=== PATIENT | female | born 1995 | race Two or more races ===

== ENCOUNTER → 2017-07-05 | Emergency (ER) | payer OTHER ==
[~2017-07-05] VITALS: Ht 165.1 cm; Wt 52.2 kg
[~2017-07-05] MED LIST: PROTONIX40 M1
== END | disposition home or self-care (01) ==
LOC: ER 18:22
DX: J11.1 Influenza due to unidentified influenza virus with other respiratory manifestations (principal)

== ENCOUNTER 2017-10-04 13:11 | Emergency (ER) | payer OTHER ==
[~2017-10-04] VITALS: Ht 165.1 cm; Wt 54.4 kg
[2017-10-04] MEDS ORDERED: ZITHROMAX200 MG PO (15:54)
[2017-10-04] MEDS ORDERED: IBUPROFEN800 MG PO (15:54)
== END 2017-10-04 15:58 | disposition home or self-care (01) ==
LOC: ER 13:11
DX: J03.90 Acute tonsillitis, unspecified (principal)

== ENCOUNTER 2018-03-28 19:13 | Emergency (ER) | payer OTHER ==
[~2018-03-28] VITALS: Ht 165.1 cm; Wt 56.7 kg
[~2018-03-28 19:13] MED LIST changes: +IBUPROFEN800 MG PO; +ZITHROMAX200 MG PO
[2018-03-29] MEDS ORDERED: LEVSIN/SL0.125 MG SL (01:57)
[2018-03-29] MEDS ORDERED: ZOFRAN ODT4 MG PO (01:57)
[2018-03-29] MEDS ORDERED: PEPCID40 MG PO (01:57)
== END 2018-03-29 02:04 | disposition home or self-care (01) ==
LOC: ER 19:13
DX: K52.9 Noninfective gastroenteritis and colitis, unspecified (principal); R10.31 Right lower quadrant pain

== ENCOUNTER 2019-01-09 07:41 | Emergency (ER) | payer OTHER ==
[~2019-01-09] VITALS: Ht 165.1 cm; Wt 65.8 kg
[~2019-01-09 07:41] MED LIST changes: +LEVSIN/SL0.125 MG SL; +PEPCID40 MG PO; +ZOFRAN ODT4 MG PO
[2019-01-09] MEDS ORDERED: KETOROLAC TROME10 MG PO (10:07)
[2019-01-09] MEDS ORDERED: CIPRO500 MG PO (10:07)
== END 2019-01-09 10:40 | disposition home or self-care (01) ==
LOC: ER 07:41
DX: N39.0 Urinary tract infection, site not specified (principal)

== ENCOUNTER 2020-08-05 07:21 | Emergency (ER) | payer OTHER ==
[~2020-08-05] VITALS: Ht 165.1 cm; Wt 67.1 kg
[~2020-08-05 07:21] MED LIST changes: +CIPRO500 MG PO; +KETOROLAC TROME10 MG PO
[2020-08-05] MEDS ORDERED: KETO10TA2 PO (09:58)
[2020-08-05] MEDS ORDERED: ORPHENADRINE C100 MG PO (09:58)
== END 2020-08-05 10:27 ==
LOC: ER 07:21
DX: R07.81 Pleurodynia (principal); M54.6 Pain in thoracic spine

== ENCOUNTER 2021-08-14 06:58 | Emergency (ER) | payer OTHER ==
[~2021-08-14] VITALS: Ht 165.1 cm; Wt 68.0 kg
[~2021-08-14 06:58] MED LIST changes: +KETO10TA2 PO; +ORPHENADRINE C100 MG PO
[2021-08-14] MEDS ORDERED: PEPCID AC20 MG PO (10:51)
[2021-08-14] MEDS ORDERED: STOOL SOFTENER50 MG PO (10:51)
== END 2021-08-14 10:53 | disposition home or self-care (01) ==
LOC: ER 06:58
DX: K59.00 Constipation, unspecified (principal)

== ENCOUNTER 2023-12-12 10:46 | Emergency (ER) | payer OTHER ==
[~2023-12-12] VITALS: Ht 165.1 cm; Wt 59.0 kg
[~2023-12-12 10:46] MED LIST changes: +PEPCID AC20 MG PO; +STOOL SOFTENER50 MG PO
[2023-12-12] MEDS ORDERED: KETOROLAC TROMETHAMINE 30 MG VIAL IM STA (11:46)
== END 2023-12-12 14:32 | disposition home or self-care (01) ==
LOC: ER 10:47
DX: S59.801A Other specified injuries of right elbow, initial encounter (principal); W18.39XA Other fall on same level, initial encounter; Y93.F1 Activity, caregiving, bathing; Y92.012 Bathroom of single-family (private) house as the place of occurrence of the external cause; Z88.0 Allergy status to penicillin; S49.81XA Other specified injuries of right shoulder and upper arm, initial encounter; S69.81XA Other specified injuries of right wrist, hand and finger(s), initial encounter

== ENCOUNTER 2024-04-24 16:52 | Emergency (ER) | payer OTHER ==
[~2024-04-24] VITALS: Ht 165.1 cm; Wt 56.7 kg
[2024-04-24 17:52] VITALS: BP 123/73; O2SAT 100
[2024-04-24] MEDS ORDERED: KETOROLAC TROMETHAMINE 30 MG VIAL IM ONE (19:15)
[2024-04-24] MEDS ORDERED: DEXAMETHASONE SODIUM PHOSPHATE 4 MG/ML VIAL IM ONE (19:15)
== END 2024-04-24 20:59 | disposition home or self-care (01) ==
LOC: ER 16:54
DX: M62.838 Other muscle spasm (principal); M54.2 Cervicalgia; M25.511 Pain in right shoulder; Z88.0 Allergy status to penicillin